=== PATIENT | male | born 1990 | race Caucasian/White ===

== ENCOUNTER 2020-11-16 18:15 | Emergency (ER) | payer OTHER ==
[~2020-11-16 18:15] MED LIST: AMOXICILLIN500 MG PO; NAPROSYN500 MG PO; ROBAXIN750 MG PO
[2020-11-16 18:58] LABS: BASOPHIL 0.4 % (0-2); EOSINOPHIL 2.7 % (0-5); HCT 42.3 % (42.0-52.0); HGB 14.7 g/dl (13.2-18.0); LYMPHOCYTE 35.8 % (15-48); MCH 31.2 pg (25.0-31.0); MCHC 34.8 g/dL (32.0-36.0); MCV 89.8 fL (78.0-100.0); MONOCYTE 4.4 % (0-12); NEUTROPHIL 56.3 % (41-80); NRBC 0; PLT 388 K/uL (150-400); RBC 4.71 M/uL (4.70-6.00); RDW 13.1 % (11.5-14.0); WBC 11.9 K/uL (4.0-10.5)
[2020-11-16 19:17] LABS: ALBUMIN 4.3 g/dL (3.4-5.0); BILIRUBIN - TOTAL 0.5 mg/dL (0.2-1.0); BUN/CREAT RATIO (CALC) 15.4 RATIO; CREATININE 1.17 mg/dL (0.67-1.17); GLOBULIN (CALCULATION) 3.5 g/dL; POTASSIUM 3.7 mmol/L (3.5-5.1); TOTAL PROTEIN 7.8 g/dL (6.4-8.2)
[2020-11-16 20:04] LABS: BILIRUBIN NEGATIVE (NEGATIVE); BLOOD NEGATIVE Ery/uL (NEGATIVE); CLARITY CLEAR (CLEAR); COLOR YELLOW (YELLOW); GLUCOSE (U) NORMAL (NORMAL); LEUKOCYTES NEGATIVE Leu/uL (NEGATIVE); NITRITE NEGATIVE (NEGATIVE); PROTEIN NEGATIVE (NEGATIVE); SPECIFIC GRAVITY >=1.030 (1.001-1.030); UROBILINOGEN 0.2 mg/dL (0.2-1.0); pH 5.5 (5.0-9.0)
[2020-11-16] MEDS ORDERED: BENTYL10 MG PO (21:22)
[2020-11-16] MEDS ORDERED: ONDANSETRON ODT4 MG PO (21:22)
== END 2020-11-16 21:35 | disposition home or self-care (01) ==
LOC: FER 18:15
PROVIDERS: Internal Medicine
DX: R10.9 Unspecified abdominal pain (principal); T67.5XXA Heat exhaustion, unspecified, initial encounter; X30.XXXA Exposure to excessive natural heat, initial encounter
CPT/HCPCS: 36415; 80053; 81003; 82150; 83690; 85025; J7030; Q9967